=== PATIENT | male | born 1980 | race African-American/Black ===

== ENCOUNTER 2025-09-30 03:47 | Emergency (ER) | payer SELFPAY ==
[~2025-09-30] VITALS: Ht 190.5 cm; Wt 97.7 kg
[2025-09-30 04:00] VITALS: O2SAT 100
[2025-09-30] MEDS: ACETAMINOPHEN 500MG TABLET PO ONE (04:46)
[2025-09-30] MEDS: TETANUS, DIPHTHERIA, PERTUSSIS VAC/PF 0.5ML (>10YR OLD) IM ONE (04:47)
[2025-09-30] MEDS ORDERED: NAPR-1176 MT (05:22)
[2025-09-30] MEDS: LIDOCAINE HCL 1% 20ML VIAL INFIL ONE (05:27)
[2025-09-30 05:30] VITALS: BP 124/67; PULSE 84; RESP 18; TEMP 36.8; O2SAT 100
== END 2025-09-30 05:35 | disposition home or self-care (01) ==
LOC: ER 03:47
DX: S01.81XA Laceration without foreign body of other part of head, initial encounter (principal); X58.XXXA Exposure to other specified factors, initial encounter; Y93.89 Activity, other specified; Y92.89 Other specified places as the place of occurrence of the external cause; Y99.8 Other external cause status
CPT/HCPCS: 99283; 90715; 12011; 90471; J2003